=== PATIENT | male | born 1990 | race Caucasian/White ===

== ENCOUNTER 2022-08-06 13:34 | Emergency (ER) | payer OTHER ==
[2022-08-06] MEDS ORDERED: Lidocaine 1% with EPINEPHrine 1:100,000 10 ML MDV INJECT ONE (13:45)
[2022-08-06 13:48] VITALS: BP 122/77; PULSE 73
[2022-08-06] MEDS ORDERED: Diphtheria,Pertussis(Acell),Tetanus Vaccine 0.5 ML Syringe IM ONE (13:48)
[2022-08-06] MEDS ORDERED: Bacitracin/Neomycin/Polymyxin B Oint 0.9 GM U/D Packet TOP ONE (14:16)
[2022-08-06] MEDS ORDERED: Cephalexin 250 MG Cap PO ONE (14:18)
== END 2022-08-06 14:35 | disposition home or self-care (01) ==
LOC: KA.ED 13:34
DX: S41.112A Laceration without foreign body of left upper arm, initial encounter (principal); Z23 Encounter for immunization; Z91.010 Allergy to peanuts; Z91.048 Other nonmedicinal substance allergy status; W26.8XXA Contact with other sharp object(s), not elsewhere classified, initial encounter
CPT/HCPCS: 12001; 99282; A9270; 99283